=== PATIENT | female | born 1950 | race Caucasian/White ===

== ENCOUNTER → 2016-07-23 | Outpatient (CLI) | payer MEDICARE, OTHER ==
[~2016-07-23] VITALS: Ht 162.6 cm; Wt 98.4 kg
[~2016-07-23] MED LIST: ALBU0.5N INH; ALBU17IN2 INH; ALBU83IN INH; ALDA25TA2 PO; ALPR0.25 PO; ASPI325T PO; ASPI81TA7 PO; CALC600T10 PO; CALC600T7 PO; CARD120C3 PO; CARD240C5 PO; CART240C PO; CETI5TA PO; CIPR500T89 PO; DOXY-197 PO; DYAZCA PO; ELIQ5TAB PO; FEXO60CA PO; FEXO60TA PO; FLUO20CA8 PO; FLUO20CA9 PO; FLUV1TAB3 PO; FURO20TA2 PO; IPRA2IN INH; KLOR8TAB PO; LESC80TA PO; LIDOCAINE 2% INJ 100 MG/5 ML SDV (FOR ANES.) As Ordered ONE; MOME50SP; MONT10TA2 PO; MUCI600T34 PO; NICO21DI24 TD; NS 1,000 ML IV SCH; PATA0.2S OU; POTA10CA PO; PRED20TA PO; PRED50TA2 PO; PROPOFOL 200 MG/20 ML VIAL As Ordered ONE; REFR0.5D8 OU; SING10TA32 PO; SYMB160A INH; SYMB16INH INH; TRIA37.53 PO; TYLE325T5 PO; VENL150C43 PO; VENL150T PO; VITA100037 PO; VITA200016 PO; VITAD1000T PO; ZYRT10TA2 PO
--- NOTE | 2016-07-23 12:11 | ROOR ---
Patient Name: Jackie Luis Procedure Date: 07/23/2016 11:59 AM Date of : 1950 Age: 66 Room: [facility] Gender: Female Note Status: Finalized Procedure: Upper GI endoscopy Indications: Heme positive stool Providers: Ry WHITE MD Referring MD: LOBO ELY MD Requesting Provider: Medicines: Monitored Anesthesia Care Complications: No immediate complications. Procedure: Pre-Anesthesia Assessment: - The heart rate, respiratory rate, oxygen saturations, blood pressure, adequacy of pulmonary ventilation, and response to care were monitored throughout the procedure. The Endoscope was introduced through the mouth, and advanced to the third part of duodenum. The upper GI endoscopy was accomplished without difficulty. The patient tolerated the procedure well. Findings: The esophagus was normal. The stomach was normal. The examined duodenum was normal. Impression: - Normal esophagus. - Normal stomach. - Normal examined duodenum. - No specimens collected. Recommendation: - Observe patient's clinical course. Ry White MD Ry WHITE MD 07/23/2016 12:10:53 PM This report has been signed electronically. Number of Addenda: 0 Note Initiated On: 07/23/2016 11:59 AM Estimated Blood Loss: Estimated blood loss: none.
--- NOTE | 2016-07-23 12:39 | ROOR ---
Patient Name: Jackie Luis Procedure Date: 07/23/2016 12:00 PM Date of : 1950 Age: 66 Room: [facility] Gender: Female Note Status: Finalized Procedure: Colonoscopy Indications: Heme positive stool Providers: Ry WHITE MD Referring MD: LOBO ELY MD Requesting Provider: Medicines: Monitored Anesthesia Care Complications: No immediate complications. Procedure: Pre-Anesthesia Assessment: - The heart rate, respiratory rate, oxygen saturations, blood pressure, adequacy of pulmonary ventilation, and response to care were monitored throughout the procedure. The Colonoscope was introduced through the anus and advanced to the cecum, identified by appendiceal orifice and ileocecal valve. The colonoscopy was performed without difficulty. The patient tolerated the procedure well. The quality of the bowel preparation was unsatisfactory. Findings: Three sessile polyps were found in the ascending colon and cecum. The polyps were 4 to 5 mm in size. These polyps were removed with a cold snare. Resection and retrieval were complete. Two sessile polyps were found in the descending colon. The polyps were 3 to 5 mm in size. These polyps were removed with a cold snare. Resection and retrieval were complete. A 6 mm polyp was found in the sigmoid colon. The polyp was semi-pedunculated. The polyp was removed with a cold snare. Resection and retrieval were complete. To prevent bleeding after the polypectomy, two hemostatic clips were successfully placed. There was no bleeding at the end of the procedure. Internal hemorrhoids were found during retroflexion. The hemorrhoids were medium-sized. Impression: - Preparation of the colon was suboptimal. - Three 4 to 5 mm polyps in the ascending colon and in the cecum, removed with a cold snare. Resected and retrieved. - Two 3 to 5 mm polyps in the descending colon, removed with a cold snare. Resected and retrieved. - One 6 mm polyp in the sigmoid colon, removed with a cold snare. Resected and retrieved. Clips were placed. - Internal hemorrhoids. Recommendation: - Repeat colonoscopy because the bowel preparation was suboptimal and for surveillance of multiple polyps. - Resume Eliquis (apixaban) at prior dose in 2 days. - Await pathology results. - Telephone endoscopist for pathology results in 2 weeks. Ry White MD Ry WHITE MD 07/23/2016 12:39:26 PM This report has been signed electronically. Number of Addenda: 0 Note Initiated On: 07/23/2016 12:00 PM Estimated Blood Loss: Estimated blood loss: none.
[2016-07-23 13:00] VITALS: BP 152/71
== END ==
LOC: M OPP 11:19
PROVIDERS: ATTEND Internal Medicine Gastroenterology
DX: R19.5 Other fecal abnormalities (principal); D12.2 Benign neoplasm of ascending colon; D12.0 Benign neoplasm of cecum; D12.4 Benign neoplasm of descending colon; D12.5 Benign neoplasm of sigmoid colon; K64.8 Other hemorrhoids; I10 Essential (primary) hypertension; J44.9 Chronic obstructive pulmonary disease, unspecified; Z72.0 Tobacco use; J45.909 Unspecified asthma, uncomplicated; I48.91 Unspecified atrial fibrillation; F32.9 Major depressive disorder, single episode, unspecified; F41.9 Anxiety disorder, unspecified; I63.9 Cerebral infarction, unspecified; Z79.899 Other long term (current) drug therapy; Z88.0 Allergy status to penicillin; Z91.040 Latex allergy status; Z91.013 Allergy to seafood

== ENCOUNTER → 2019-11-30 | Outpatient (CLI) | payer MEDICARE ==
[~2019-11-30] MED LIST changes: +ASPI1TAB15 PO; -ASPI81TA7 PO; -CALC600T10 PO; +CALC600T31 PO; -CART240C PO; +CART240C3 PO; +CIPR-249 PO; -CIPR500T89 PO; +FLUO20CA22 PO; -FLUO20CA9 PO; -FLUV1TAB3 PO; +FLUV80TA PO; +KLOR10TA76 PO; -LIDOCAINE 2% INJ 100 MG/5 ML SDV (FOR ANES.) As Ordered ONE; -MUCI600T34 PO; +MUCI600T37 PO; -NS 1,000 ML IV SCH; +OLOP2.5D3 OU; -POTA10CA PO; -PROPOFOL 200 MG/20 ML VIAL As Ordered ONE; -VENL150T PO; +VENL150T40 PO; -VITA100037 PO; +VITA100067 PO; +ZYRT10CA5 PO; -ZYRT10TA2 PO
--- NOTE | 2019-11-30 08:26 | REP ---
REASON: History of COPD. No prior chest CT. The latest prior plan film 05/23/2019. The lack of intravenous contrast decreases the sensitivity of the exam. There is no mediastinal or hilar adenopathy. There are no pleural or pericardial effusions. The imaged upper abdomen and imaged osseous structures are within normal limits. Evaluation of the lung carbajal shows bullous emphysematous changes with biapical predominance along with early honeycomb changes in the upper lobe regions peripherally bilaterally right greater than left. Asymmetric bibasilar densities are noted. There is mild early cylindrical bronchiectasis. IMPRESSION: Emphysematous changes and chronic changes as described above. There are no priors for comparison. Consider short-term followup. Electronically Signed by Anurag Howell DO 11/30/2019 09:22 A
== END ==
LOC: M RAD 06:57
PROVIDERS: ATTEND Nurse Practitioner Family
DX: R91.8 Other nonspecific abnormal finding of lung field (principal)

== ENCOUNTER → 2020-06-18 | Outpatient (CLI) | payer MEDICARE ==
[~2020-06-18] MED LIST changes: +ASPI-546 PO; -ASPI1TAB15 PO
--- NOTE | 2020-06-18 21:10 | REP ---
INDICATION: OTHER NONSPECIFIC ABNORMAL FINDING OF LUNF FIELD COMPARISON: None TECHNIQUE: Axial noncontrast images from the thoracic inlet to the upper abdomen with coronal and sagittal reformations. This CT examination was performed using the following dose reduction techniques: Automated exposure control, adjustment of mA and/or kv according to the patient's size, and use of iterative reconstruction technique. FINDINGS: Chronic emphysematous changes along with bronchiectasis, scattered scarring, mild subpleural fibrosis, and asymmetric basilar densities primarily at the right base appear essentially unchanged compared to prior examination. No new acute consolidation or obvious significant nodule/mass. No pleural effusion. No pneumothorax. No obvious adenopathy. Stable atherosclerotic changes to the thoracic aorta and coronary arteries again noted without aneurysm or cardiomegaly. No pericardial effusion. Musculoskeletal structures demonstrate age-related changes without acute osseous abnormality. Limited upper abdomen is grossly unremarkable. IMPRESSION: 1. Chronic bullous emphysematous changes with scattered scarring and asymmetric subtle densities primarily at the right lateral base. Findings are unchanged compared to 11/30/2019. Consider 6 month follow-up examination to confirm stable findings. <Electronically signed by Mitchell Grossman > 06/18/20 [id number]
== END ==
LOC: M RAD 15:19
PROVIDERS: ATTEND Nurse Practitioner Family
DX: R91.8 Other nonspecific abnormal finding of lung field (principal)

== ENCOUNTER → 2020-09-23 | Outpatient (CLI) | payer MEDICARE | LOC: M SLEEP 20:00 | PROVIDERS: ATTEND Nurse Practitioner Family | DX: G47.33 Obstructive sleep apnea (adult) (pediatric) (principal) ==

== ENCOUNTER → 2021-02-09 | Outpatient (CLI) | payer BC, MEDICARE, SELFPAY ==
--- NOTE | 2021-02-09 16:07 | REP ---
INDICATION: COPD COMPARISON: 06/18/2020 and 11/30/2019 TECHNIQUE: Standard helical technique without intravenous contrast FINDINGS: There is no significant change in appearance of the mediastinum or pulmonary varun. Once again, there is a benign ductus diverticulum. There are no pleural or pericardial effusions. There is no significant change in appearance of the imaged upper abdomen. Benign low-density adrenal gland thickening is noted status quo. There are chronic changes seen involving the spine. Evaluation of the lung carbajal shows rather extensive emphysematous changes. Scattered parenchymal bulla are seen status quo. Lung carbajal are hyperexpanded. Scattered asymmetric and curvilinear densities are again seen status quo. There is cylindrical bronchiectasis status quo. Small amount of soft tissue density is seen in multiple bronchioles particularly to the lower lobe regions and representing a change from the prior exam. There is a pleural base nodular density in the right lower lobe which is stable. Other smaller right lower lobe densities are also noted and also have an unchanged appearance. No definite new abnormal nodules have developed. IMPRESSION: 1. Chronic emphysematous changes as described above. 2. Cylindrical bronchiectasis with evidence of inspissated debris within multiple lower lobe bronchioles likely mucoid debris, however, consider repeat exam to ensure resolution. 3. Stable appearing nodules. 4. Other benign findings as described above. <Electronically signed by Anurag Howell > 02/09/21 0521
== END ==
LOC: M PLAIMG 14:14
PROVIDERS: ATTEND Nurse Practitioner Family
DX: J44.9 Chronic obstructive pulmonary disease, unspecified (principal)

== ENCOUNTER → 2021-08-04 | Outpatient (CLI) | payer MEDICARE ==
[~2021-08-04] MED LIST changes: -KLOR10TA76 PO; +NASO50SP3; +POTA-136 PO
== END ==
LOC: M RAD 16:11
PROVIDERS: ATTEND Internal Medicine Pulmonary Disease
DX: J43.9 Emphysema, unspecified (principal); J47.9 Bronchiectasis, uncomplicated

== ENCOUNTER → 2022-02-01 | Outpatient (CLI) | payer MEDICARE ==
[~2022-02-01] MED LIST changes: +ALBU2.5V10 INH; -ALBU83IN INH; -TRIA37.53 PO; +TRIA37.577 PO
== END ==
LOC: M RAD 13:49
PROVIDERS: ATTEND Nurse Practitioner Family
DX: R91.8 Other nonspecific abnormal finding of lung field (principal)

== ENCOUNTER → 2022-03-02 | Outpatient (CLI) | payer MEDICARE | LOC: M RAD 11:35 | PROVIDERS: ATTEND Family Medicine | DX: I10 Essential (primary) hypertension (principal) ==

== ENCOUNTER → 2022-03-04 | Outpatient (CLI) | payer MEDICARE ==
[2022-03-04 18:38] LABS: HEMATOCRIT 43.3 % (36.0-47.0); HEMOGLOBIN 14.1 g/dl (12.0-15.5); MEAN CORPUSCULAR HEMOGLOBIN 30.3 pg (27.0-33.0); MEAN CORPUSCULAR HGB CONC 32.6 g/dl (32.0-36.5); MEAN CORPUSCULAR VOLUME 92.9 fl (80.0-96.0); PLATELET COUNT, AUTOMATED 295 10^3/uL (150-450); RED BLOOD COUNT 4.66 10^6/uL (4.00-5.40); WHITE BLOOD COUNT 7.8 10^3/uL (4.0-10.0)
[2022-03-04 19:18] LABS: HEMOGLOBIN A1c 6.7 %
[2022-03-04 19:19] LABS: ALBUMIN 3.3 GM/DL (3.2-5.2); ALT/SGPT 19 U/L (12-78); BILIRUBIN,TOTAL 0.6 MG/DL (0.2-1.0); BLOOD UREA NITROGEN 15 MG/DL (7-18); CARBON DIOXIDE LEVEL 27 MEQ/L (21-32); CHLORIDE LEVEL 105 MEQ/L (98-107); CHOLESTEROL LEVEL 157 MG/DL (<200); CHOLESTEROL RISK RATIO 2.532 (<5); CREATININE FOR GFR 0.89 MG/DL (0.55-1.30); GLOMERULAR FILTRATION RATE > 60.0 (>39); GLUCOSE, FASTING 108 MG/DL (70-100); HDL CHOLESTEROL 62 MG/DL (>40); LDL CHOLESTEROL 79 MG/DL (<100); NON-HDL-C 95 MG/DL; SODIUM LEVEL 138 MEQ/L (136-145); THYROID STIMULATING HORMONE 0.789 uIU/ML (0.358-3.740); TOTAL PROTEIN 7.1 GM/DL (6.4-8.2); TRIGLYCERIDES LEVEL 82 MG/DL (<150)
== END ==
LOC: M EKG 17:51
PROVIDERS: ATTEND Family Medicine
DX: I10 Essential (primary) hypertension (principal)

== ENCOUNTER → 2022-05-12 | Outpatient (CLI) | payer MEDICARE | LOC: M RAD 15:31 | PROVIDERS: ATTEND Nurse Practitioner Family | DX: R91.8 Other nonspecific abnormal finding of lung field (principal); J44.9 Chronic obstructive pulmonary disease, unspecified ==

== ENCOUNTER → 2022-09-13 | Outpatient (CLI) | payer MEDICARE ==
[~2022-09-13] MED LIST changes: +MONT-5 PO; -SING10TA32 PO
[2022-09-13 15:30] LABS: HEMATOCRIT 49.7 % (36.0-47.0); HEMOGLOBIN 16.4 g/dl (12.0-15.5); MEAN CORPUSCULAR VOLUME 90.9 fl (80.0-96.0); PLATELET COUNT, AUTOMATED 271 10^3/uL (150-450); RED BLOOD COUNT 5.47 10^6/uL (4.00-5.40); WHITE BLOOD COUNT 9.9 10^3/uL (4.0-10.0)
[2022-09-13 15:35] LABS: HEMOGLOBIN A1c 6.5 % (4.0-6.0)
[2022-09-13 15:52] LABS: ALBUMIN 3.7 G/DL (3.2-5.2); ALKALINE PHOSPHATASE 144 U/L (46-116); ALT/SGPT 16 U/L (7.0-40); AST/SGOT 20 U/L (<34); BILIRUBIN,TOTAL 1.2 MG/DL (0.3-1.2); BLOOD UREA NITROGEN 17 MG/DL (9-23); CALCIUM LEVEL 9.2 MG/DL (8.3-10.6); CARBON DIOXIDE LEVEL 27 MMOL/L (20-31); CHLORIDE LEVEL 97 MMOL/L (98-107); CREATININE FOR GFR 0.91 MG/DL (0.55-1.30); GLOMERULAR FILTRATION RATE > 60.0 (>39); GLUCOSE, FASTING 135 MG/DL (74-106); POTASSIUM SERUM 3.6 MMOL/L (3.5-5.1); SODIUM LEVEL 135 MMOL/L (136-145); THYROID STIMULATING HORMONE 1.944 uIU/ML (0.55-4.78); TOTAL PROTEIN 7.1 G/DL (5.7-8.2)
== END ==
LOC: M RAD 14:09
PROVIDERS: ATTEND Family Medicine
DX: D64.9 Anemia, unspecified (principal)

== ENCOUNTER 2023-01-24 18:27 | Observation (INO) | payer MEDICARE ==
[~2023-01-24] VITALS: Ht 162.6 cm; Wt 83.6 kg
[2023-01-24] MEDS ORDERED: ETOMIDATE INJ 20MG/10ML VIAL IV STA (18:38)
[2023-01-24] MEDS ORDERED: ROCURONIUM BROMIDE 50MG/5ML VIAL IV SCH (18:39)
[2023-01-24 19:09] LABS: BASO # 0.1 10^3/uL (0.0-0.2); BASO % 0.4 % (0.0-1.0); HEMATOCRIT 55.6 % (36.0-47.0); HEMOGLOBIN 18.3 g/dl (12.0-15.5); LYMPH # 1.4 10^3/uL (1.5-5.0); LYMPH % 10.2 % (24.0-44.0); MEAN CORPUSCULAR HGB CONC 32.9 g/dl (32.0-36.5); MEAN CORPUSCULAR VOLUME 91.3 fl (80.0-96.0); MONO # 1.1 10^3/uL (0.0-0.8); MONO % 8.1 % (2.0-8.0); NEUTROPHILS # 10.9 10^3/uL (1.5-8.5); NEUTROPHILS % 80.9 % (36.0-66.0); PLATELET COUNT, AUTOMATED 243 10^3/uL (150-450); RED BLOOD COUNT 6.09 10^6/uL (4.00-5.40); WHITE BLOOD COUNT 13.5 10^3/uL (4.0-10.0)
[2023-01-24 19:10] LABS: ABG BASE EXCESS -3.1 (-2.0-2.0); ABG HCO3 22.8 MMOL/L (22.0-26.0); ABG O2 SATURATION 99.9 % (95.0-99.0); ABG PARTIAL PRESSURE CO2 43.5 mmHg (35.0-45.0); ABG PARTIAL PRESSURE O2 324.1 mmHg (75.0-100.0); ABG TOTAL CO2 24.1 MMOL/L (23.0-31.0); ABG pH (ARTERIAL) 7.337 UNITS (7.350-7.450)
[2023-01-24] MEDS ORDERED: DIGO0.123 PO (19:13)
[2023-01-24] MEDS ORDERED: BREO1INH PO (19:13)
[2023-01-24] MEDS ORDERED: CEPH250T PO (19:13)
[2023-01-24] MEDS ORDERED: LEVOTAB10 PO (19:13)
[2023-01-24] MEDS ORDERED: FLUT15.820 NARES (19:13)
[2023-01-24] MEDS ORDERED: ATOR1TAB19 PO (19:13)
[2023-01-24] MEDS ORDERED: TIOT18INH INH (19:13)
[2023-01-24] MEDS ORDERED: propofoL 1,000 MG in IV 1 EA IV SCH (19:20)
[2023-01-24 19:30] LABS: ALBUMIN 3.4 G/DL (3.2-5.2); ALKALINE PHOSPHATASE 141 U/L (46-116); ALT/SGPT 22 U/L (7.0-40); AST/SGOT 65 U/L (<34); BILIRUBIN,DIRECT 0.3 MG/DL (<0.4); BILIRUBIN,TOTAL 1.1 MG/DL (0.3-1.2); CK-MB VALUE MASS 24.9 NG/ML (<3.6); DIGOXIN LEVEL 0.2 NG/ML (0.8-2.0); MAGNESIUM LEVEL 2.4 MG/DL (1.8-2.4); TOTAL PROTEIN 7.6 G/DL (5.7-8.2)
[2023-01-24 19:32] LABS: THYROID STIMULATING HORMONE 1.058 uIU/ML (0.55-4.78); THYROXINE (T4) 7.3 UG/DL (4.5-10.9)
[2023-01-24 19:43] LABS: CPK CREATINE PHOSPHOKINASE 1624 U/L (34-145); MB/CK RELATIVE INDEX 1.53 (< OR =4)
[2023-01-24] MEDS ORDERED: AMIODARONE HCL 150 MG in IV 1 EA IV STA (19:47)
[2023-01-24 20:20] LABS: BLOOD UREA NITROGEN 27 MG/DL (9-23); CALCIUM LEVEL 9.1 MG/DL (8.3-10.6); CARBON DIOXIDE LEVEL 25 MMOL/L (20-31); CHLORIDE LEVEL 105 MMOL/L (98-107); CREATININE FOR GFR 0.79 MG/DL (0.55-1.30); GLOMERULAR FILTRATION RATE > 60.0 (>39); GLUCOSE, FASTING 109 MG/DL (74-106); POTASSIUM SERUM 4.5 MMOL/L (3.5-5.1); SODIUM LEVEL 143 MMOL/L (136-145)
[2023-01-24 20:45] VITALS: O2SAT 100
[2023-01-24] MEDS ORDERED: dexAMETHasone 20MG/5ML VIAL IV ONE (21:35)
[2023-01-24] MEDS ORDERED: SCOPOLAMINE 1MG TRANSDERMAL PATCH TOP PRN (22:05)
[2023-01-24] MEDS ORDERED: ACETAMINOPHEN 650MG SUPP PR PRN (22:05)
[2023-01-24] MEDS ORDERED: FLEET ENEMA PR PRN (22:05)
[2023-01-24] MEDS ORDERED: ONDANSETRON 4MG 2ML VIAL IV PRN (22:05)
[2023-01-24] MEDS ORDERED: MORPHINE 2 MG/ML 1ML VIAL IV PRN (22:05)
[2023-01-24] MEDS ORDERED: LORazepam 2 MG/ML 1ML VIAL IV PRN (22:05)
[2023-01-24 22:10] VITALS: BP 130/83; TEMP 96.1; O2SAT 55
[2023-01-25] MEDS ORDERED: ROCURONIUM BROMIDE 50MG/5ML VIAL ONE (01:52)
[2023-01-25] MEDS ORDERED: ETOMIDATE INJ 20MG/10ML VIAL ONE (01:52)
== END 2023-01-25 01:53 | disposition expired ==
LOC: M ED 18:27 → M ED INP 18:28
PROVIDERS: ADMIT Internal Medicine; ATTEND Internal Medicine
DX: G93.6 Cerebral edema (principal); J96.21 Acute and chronic respiratory failure with hypoxia; R32 Unspecified urinary incontinence; R15.9 Full incontinence of feces; R11.10 Vomiting, unspecified; X58.XXXA Exposure to other specified factors, initial encounter; Y92.098 Other place in other non-institutional residence as the place of occurrence of the external cause; B34.1 Enterovirus infection, unspecified; B34.8 Other viral infections of unspecified site; I10 Essential (primary) hypertension; I48.91 Unspecified atrial fibrillation; R74.8 Abnormal levels of other serum enzymes; J30.2 Other seasonal allergic rhinitis; Z79.899 Other long term (current) drug therapy; Z79.01 Long term (current) use of anticoagulants; Z79.51 Long term (current) use of inhaled steroids; Z79.2 Long term (current) use of antibiotics; Z88.0 Allergy status to penicillin; Z91.040 Latex allergy status; Z51.5 Encounter for palliative care
CPT/HCPCS: 31500; 36600; 51702; 70450; 71045; 80047; 80048; 80076; 80162; 82550; 82553; 82803; 83605; 83735; 83880; 84436; 84443; 84484; 85025; 87040; 87486; 87581; 87633; 87798; 93005; 93041; 94760; 96365; 96366; 96375; 99285; G0378; J0283; J1100; J2060